=== PATIENT | female | born 1985 | race Caucasian/White ===

== ENCOUNTER 2016-04-13 11:42 | Emergency (ER) | payer OTHER ==
[2016-04-13 11:45] VITALS: TEMP 97.8
--- NOTE | 2016-04-13 12:06 | ED ---
Upper Extremity HPI - General Chief Complaint: Extremity Injury, Upper Stated Complaint: fall, arm pain Time Seen by Provider: 04/13/16 11:48 Source: patient Mode of arrival: ambulatory Limitations: no limitations - History of Present Illness Initial Comments: This 30-year-old female presents with a complaint of some left wrist and hand pain. She states that she fell down approximately 5-6 steps accidentally yesterday. She denies any other injuries. She has some pain with movement of her left wrist. No other complaints or modifying factors. Symptoms severity is minimal. Place: home - Related Data Home Medications Medication Instructions Recorded Confirmed Dextroamphetamine/Amphetamine 20 mg PO BID 10/13/13 04/09/15 [Adderall Xr] HYDROcodone/APAP 7.5-325MG [[place] 1 tab PO DIRECTED PRN 10/13/13 04/09/15 7.5-325] buPROPion XL [Wellbutrin XL] 150 mg PO DAILY 10/13/13 04/09/15 Previous Rx's Medication Instructions Recorded Hydrocodone/Acetaminophen [[place] 1 tab PO Q6HR PRN #20 tab 04/09/15 5-325] Allergies Allergy/AdvReac Type Severity Reaction Status Date / Time aspirin Allergy Unknown Verified 04/13/16 11:45 ciprofloxacin [From Cipro] Allergy Unknown Verified 04/13/16 11:45 ciprofloxacin HCl Allergy Unknown Verified 04/13/16 11:45 [From Cipro] haloperidol [From Haldol] Allergy Unknown Verified 04/13/16 11:45 haloperidol lactate Allergy Unknown Verified 04/13/16 11:45 [From Haldol] Iodinated Contrast Media - Allergy Dyspnea Verified 04/13/16 11:45 Oral and [Iodinated Contrast Media - IV Dye] latex Allergy Unknown Verified 04/13/16 11:45 Penicillins Allergy Unknown Verified 04/13/16 11:45 sulfamethoxazole Allergy Unknown Verified 04/13/16 11:45 [From Bactrim] trimethoprim [From Bactrim] Allergy Unknown Verified 04/13/16 11:45 Review of Systems ROS Statement: Those systems with pertinent positive or pertinent negative responses have been documented in the HPI. ROS Other: All systems not noted in ROS Statement are negative. Past Medical History Past Medical History: Asthma, Seizure Disorder Additional Past Medical History / Comment(s): migraines, back pain History of Any Multi-Drug Resistant Organisms: None Reported Past Surgical History: Section Past Psychological History: ADD/ADHD, Bipolar, Depression Smoking Status: Current every day smoker Past Alcohol Use History: None Reported, Rare Past Drug Use History: None Reported General Exam Limitations: no limitations Extremities exam: Present: tenderness (There is mild tenderness noted to the mid dorsal aspect of the left wrist. There is no swelling identified. There is some slight pain at extremes of range of motion. There is also some slight tenderness noted to the dorsal aspect of the mid left hand. No swelling is noted to this area as well. Strength is intact.) Neurological exam: Present: alert, oriented X3. Absent: motor sensory deficit Psychiatric exam: Present: normal affect, normal mood Skin exam: Present: intact. Absent: cyanosis, erythema Course Vital Signs 04/13/16 11:43 Temperature 97.8 F Pulse Rate 90 Respiratory 20 Rate Blood Pressure 119/73 O2 Sat by Pulse 99 Oximetry Medical Decision Making - Medical Decision Making The patient was seen and examined. All diagnostics were reviewed. An x-ray was taken of the left wrist and left hand. This does not show any evidence of fracture. The patient is placed in a 3 inch Ortho-Glass custom molded splint by myself. Excellent post-splint neurovascular status is noted. It is felt as though she is stable for discharge and leaves in no distress. Disposition Clinical Impression: Wrist sprain, Hand contusion Disposition: HOME SELF-CARE Instructions: Wrist Injury (ED), Hand Sprain (ED), Splint Care (ED) Additional Instructions: Please use Motrin and/or Tylenol if needed for pain. Referrals: Linda Burris MD [Primary Care Provider] - 1-2 days Time of Disposition: 12:54
--- NOTE | 2016-04-13 12:22 | XR ---
EXAMINATION TYPE: 3 views left hand. 4 views left wrist. DATE OF EXAM: 04/13/2016 12:15 PM COMPARISON: NONE HISTORY: 30-year-old female fall down steps last night with a pain along the palm. FINDINGS: Wrist: The radiocarpal and distal radial ulnar joint as well as the midcarpal compartment appear intact. No acute fracture, subluxation, or dislocation seen. Hand: No acute fracture, subluxation, or dislocation. IMPRESSION: Left wrist and hand without acute osseous abnormality seen.
[2016-04-13 13:11] VITALS: BP 107/66; PULSE 83; RESP 16
== END 2016-04-13 13:11 | disposition home or self-care (01) ==
LOC: EC 11:42
DX: S63.502A Unspecified sprain of left wrist, initial encounter (principal); S60.222A Contusion of left hand, initial encounter; W10.9XXA Fall (on) (from) unspecified stairs and steps, initial encounter; F90.9 Attention-deficit hyperactivity disorder, unspecified type; F31.9 Bipolar disorder, unspecified; F17.200 Nicotine dependence, unspecified, uncomplicated; Z79.899 Other long term (current) drug therapy; Z88.0 Allergy status to penicillin; Z88.1 Allergy status to other antibiotic agents; Z88.2 Allergy status to sulfonamides; Z91.040 Latex allergy status; Z88.6 Allergy status to analgesic agent; Z88.8 Allergy status to other drugs, medicaments and biological substances; Z91.041 Radiographic dye allergy status
CPT/HCPCS: 29125; 99283

== ENCOUNTER → 2016-06-19 | Outpatient (CLI) | payer OTHER | END | disposition home or self-care (01) | LOC: WWCWWP 12:21 | PROVIDERS: ATTEND Obstetrics & Gynecology | DX: Z53.9 Procedure and treatment not carried out, unspecified reason (principal) ==

== ENCOUNTER → 2016-11-27 | Outpatient (CLI) | payer OTHER ==
--- NOTE | 2016-11-27 14:07 | XR ---
Cervical spine HISTORY: Neck pain or graph 5 views of the cervical spine No comparisons There is no evident foraminal encroachment. Rudimentary cervical ribs noted at C7. There may be a spi nal curvature in the thoracic spine. Overlying artifact is present. Cervical vertebral bodies show pr eserved height, alignment, and bone mineralization. Prevertebral soft tissues. IMPRESSION: Nonspecific findings described above
== END | disposition home or self-care (01) ==
LOC: RADXRMAIN 10:52
PROVIDERS: ATTEND Physical Medicine & Rehabilitation
DX: M54.2 Cervicalgia (principal)
CPT/HCPCS: 72050

== ENCOUNTER 2017-07-25 09:22 | Emergency (ER) | payer OTHER ==
[2017-07-25 09:36] VITALS: BP 119/76; PULSE 97; RESP 16; TEMP 99.2
--- NOTE | 2017-07-25 10:22 | ED ---
ENT HPI - General Chief complaint: Dental/Oral Stated complaint: Abcess tooth Time Seen by Provider: 07/25/17 09:46 Source: patient, RN notes reviewed Mode of arrival: ambulatory Limitations: no limitations - History of Present Illness Initial comments: This a 31-year-old female presents emergency Department chief complaint of right lower dental pain. Patient states has been present for last couple weeks. Patient states that at this point [id number] medications are not helping. She has had facial swelling. She's attempted to call some tenderness with no success at this time. Patient reports no fever no chills no night sweats. Denies any trismus. - Related Data Home Medications Medication Instructions Recorded Confirmed Cranberry/Vitamin C 1 tab PO BID 07/25/17 07/25/17 Cyanocobalamin (Vitamin B-12) 1,000 mcg PO DAILY 07/25/17 07/25/17 [Vitamin B-12] Iron(Unknown Dose) 1 tab PO DAILY 07/25/17 07/25/17 Lurasidone HCl [Latuda] 20 mg PO HS 07/25/17 07/25/17 Topiramate [Topamax] 50 mg PO QAM 07/25/17 07/25/17 Topiramate [Topamax] 100 mg PO HS 07/25/17 07/25/17 Previous Rx's Medication Instructions Recorded Hydrocodone/Acetaminophen [[place] 1 tab PO Q6HR PRN #12 tab 07/25/17 5-325] Ibuprofen [Motrin] 600 mg PO Q8HR PRN #30 tab 07/25/17 Penicillin V Potassium [Pen Vee K] 500 mg PO QID #40 tablet 07/25/17 Allergies Allergy/AdvReac Type Severity Reaction Status Date / Time aspirin Allergy Unknown Verified 07/25/17 09:45 ciprofloxacin [From Cipro] Allergy Unknown Verified 07/25/17 09:45 ciprofloxacin HCl Allergy Unknown Verified 07/25/17 09:45 [From Cipro] divalproex sodium Allergy Anaphylaxis Verified 07/25/17 09:45 [From Depakote] haloperidol [From Haldol] Allergy Anaphylaxis Verified 07/25/17 09:45 haloperidol lactate Allergy Anaphylaxis Verified 07/25/17 09:45 [From Haldol] Iodinated Contrast- Oral and Allergy Dyspnea/chest Verified 07/25/17 09:45 IV Dye pain [Iodinated Contrast Media - IV Dye] Review of Systems ROS Statement: Those systems with pertinent positive or pertinent negative responses have been documented in the HPI. ROS Other: All systems not noted in ROS Statement are negative. Past Medical History Past Medical History: Asthma, Seizure Disorder Additional Past Medical History / Comment(s): migraines, back pain History of Any Multi-Drug Resistant Organisms: None Reported Past Surgical History: Section Past Psychological History: ADD/ADHD, Bipolar, Depression Smoking Status: Current every day smoker Past Alcohol Use History: Rare Past Drug Use History: None Reported General Exam Limitations: no limitations General appearance: alert, in no apparent distress Head exam: Present: atraumatic, normocephalic, normal inspection Eye exam: Present: normal appearance, PERRL, EOMI. Absent: scleral icterus, conjunctival injection, periorbital swelling ENT exam: Present: mucous membranes moist, TM's normal bilaterally, normal external ear exam. Absent: normal oropharynx (Edentulous, there is swelling to the right lower anterior lateral aspect no drainable abscess) Neck exam: Present: normal inspection, full ROM. Absent: tenderness, meningismus, lymphadenopathy Respiratory exam: Present: normal lung sounds bilaterally. Absent: respiratory distress, wheezes, rales, rhonchi, stridor Cardiovascular Exam: Present: regular rate, normal rhythm, normal heart sounds. Absent: systolic murmur, diastolic murmur, rubs, gallop, clicks Course Vital Signs 07/25/17 09:34 Temperature 99.2 F Pulse Rate 97 Respiratory 16 Rate Blood Pressure 119/76 O2 Sat by Pulse 99 Oximetry Medical Decision Making - Medical Decision Making 31-year-old female presents from for dental pain. Patient will be discharged any impact anti-inflammatories and pain medication. Patient will follow-up with on-call oral surgery. Return parameters were discussed. Disposition Clinical Impression: Dental caries, Dental abscess Disposition: HOME SELF-CARE Condition: Stable Instructions: Dental Abscess (ED) Additional Instructions: Please return to the Emergency Department if symptoms worsen or any other concerns. Prescriptions: Hydrocodone/Acetaminophen [[place] 5-325] 1 tab PO Q6HR PRN #12 tab PRN Reason: Pain Ibuprofen [Motrin] 600 mg PO Q8HR PRN #30 tab PRN Reason: Pain Penicillin V Potassium [Pen Vee K] 500 mg PO QID #40 tablet Is patient prescribed a controlled substance at d/c from ED?: Yes When asked, does pt state using other controlled substances?: No If prescribed controlled substance>3 days was MAPS reviewed?: Prescribed <3 Days If opioid is for acute pain is fill amount 7 days or less?: Yes If Rx opioid, was Start Talking consent form obtained?: Yes Referrals: Linda Burris MD [Primary Care Provider] - 1-2 days Henrry Beasley DDS [STAFF PHYSICIAN] - 1-2 days Time of Disposition: 10:21
== END 2017-07-25 10:33 | disposition home or self-care (01) ==
LOC: EC 09:22
DX: K04.7 Periapical abscess without sinus (principal); K02.9 Dental caries, unspecified; G40.909 Epilepsy, unspecified, not intractable, without status epilepticus; F31.9 Bipolar disorder, unspecified; F17.200 Nicotine dependence, unspecified, uncomplicated; Z79.899 Other long term (current) drug therapy; Z88.1 Allergy status to other antibiotic agents; Z88.6 Allergy status to analgesic agent; Z88.8 Allergy status to other drugs, medicaments and biological substances; Z91.041 Radiographic dye allergy status
CPT/HCPCS: 99282

== ENCOUNTER 2018-08-21 15:58 | Emergency (ER) | payer OTHER ==
[2018-08-21 16:04] VITALS: BP 126/89; PULSE 88; RESP 18; TEMP 98.8
[2018-08-21] MEDS ORDERED: CLINDAMYCIN 150 MG CAP PO STA (16:19)
[2018-08-21] MEDS ORDERED: ACET/COD 300 MG/30 MG STARTER PACK 6 TAB BTL PO STA (16:19)
--- NOTE | 2018-08-21 16:30 | ED ---
ENT HPI - General Chief complaint: ENT Stated complaint: Dental pain Time Seen by Provider: 08/21/18 16:10 Source: patient, RN notes reviewed, old records reviewed Mode of arrival: ambulatory Limitations: no limitations - History of Present Illness Initial comments: Patient is a 32-year-old female who presents emergency Department today with complaints of lower dental pain. Patient had multiple lower teeth removed for denture fitting on August 18. Patient states that she has had increased pain and swelling over her lower jaw for the past day. She states that she saw her dental clinic yesterday for denture refitting. She called him today complaining of increased pain and he sent her here for further evaluation and concern for possible infection. Patient states that she has had no fevers, but does report chills. She denies any trismus. She denies any sore throat, or significant abscesses. She complains of tenderness over the lower jawline. Patient denies any recent fever, chills, shortness of breath, chest pain, back pain, abdominal pain, nausea vomiting, numbness or tingling, dysuria or hematuria, constipation or diarrhea, headaches or visual changes, or any other current symptoms - Related Data Home Medications Medication Instructions Recorded Confirmed Cranberry/Vitamin C 1 tab PO BID 07/25/17 07/25/17 Cyanocobalamin (Vitamin B-12) 1,000 mcg PO DAILY 07/25/17 07/25/17 [Vitamin B-12] Iron(Unknown Dose) 1 tab PO DAILY 07/25/17 07/25/17 Lurasidone [Latuda] 20 mg PO HS 07/25/17 07/25/17 Topiramate [Topamax] 50 mg PO QAM 07/25/17 07/25/17 Topiramate [Topamax] 100 mg PO HS 07/25/17 07/25/17 Previous Rx's Medication Instructions Recorded Hydrocodone/Acetaminophen [[place] 1 tab PO Q6HR PRN #12 tab 07/25/17 5-325] Ibuprofen [Motrin] 600 mg PO Q8HR PRN #30 tab 07/25/17 Penicillin V Potassium [Pen Vee K] 500 mg PO QID #40 tablet 07/25/17 Clindamycin [Cleocin] 450 mg PO TID 7 Days capsule 08/21/18 Allergies Allergy/AdvReac Type Severity Reaction Status Date / Time aspirin Allergy Unknown Verified 07/25/17 09:45 ciprofloxacin [From Cipro] Allergy Unknown Verified 07/25/17 09:45 ciprofloxacin HCl Allergy Unknown Verified 07/25/17 09:45 [From Cipro] divalproex sodium Allergy Anaphylaxis Verified 07/25/17 09:45 [From Depakote] haloperidol [From Haldol] Allergy Anaphylaxis Verified 07/25/17 09:45 haloperidol lactate Allergy Anaphylaxis Verified 07/25/17 09:45 [From Haldol] Iodinated Contrast- Oral and Allergy Dyspnea/chest Verified 07/25/17 09:45 IV Dye pain [Iodinated Contrast Media - IV Dye] Review of Systems ROS Statement: Those systems with pertinent positive or pertinent negative responses have been documented in the HPI. ROS Other: All systems not noted in ROS Statement are negative. Past Medical History Past Medical History: Asthma, Seizure Disorder Additional Past Medical History / Comment(s): migraines, back pain History of Any Multi-Drug Resistant Organisms: None Reported Past Surgical History: Section Additional Past Surgical History / Comment(s): oral surgery Past Psychological History: ADD/ADHD, Bipolar, Depression Smoking Status: Current every day smoker Past Alcohol Use History: Occasional Past Drug Use History: Marijuana General Exam - General Exam Comments Initial Comments: This is a pleasant 32-year-old female. Alert and oriented 3. No significant distress. Limitations: no limitations General appearance: alert, in no apparent distress Head exam: Present: atraumatic, normocephalic, normal inspection Eye exam: Present: normal appearance, PERRL, EOMI. Absent: scleral icterus, conjunctival injection, periorbital swelling ENT exam: Present: normal exam, mucous membranes moist, other (Patient is lower jaw tenderness. Dentures are removed and evidence of swelling around lower gumline. Sutures are intact. No bleeding noted.) Neck exam: Present: normal inspection. Absent: tenderness, meningismus, lymphadenopathy Respiratory exam: Present: normal lung sounds bilaterally. Absent: respiratory distress, wheezes, rales, rhonchi, stridor Cardiovascular Exam: Present: regular rate, normal rhythm, normal heart sounds. Absent: systolic murmur, diastolic murmur, rubs, gallop, clicks GI/Abdominal exam: Present: soft, normal bowel sounds. Absent: distended, tenderness, guarding, rebound, rigid Extremities exam: Present: normal inspection, full ROM, normal capillary refill. Absent: tenderness, pedal edema, joint swelling, calf tenderness Back exam: Present: normal inspection Neurological exam: Present: alert, oriented X3, CN II-XII intact Psychiatric exam: Present: normal affect, normal mood Skin exam: Present: warm, dry, intact, normal color. Absent: rash Course Vital Signs 08/21/18 16:01 Temperature 98.8 F Pulse Rate 88 Respiratory 18 Rate Blood Pressure 126/89 O2 Sat by Pulse 99 Oximetry Medical Decision Making - Medical Decision Making Patient is a 32-year-old female [employer] today 3 days after multiple tooth extractions of her lower jaw. Denture placement. She presents with swelling over the lower gums and tenderness over the lower jaw line. There is no palpable abscess of the sign but there does appear to be induration and swelling over the gumlines. Patient has been given clindamycin, starter pack Tylenol 3. Discussed doing saltwater rinses and following up with her dental clinic. Patient will be discharged with a prescription for clindamycin. Disposition Clinical Impression: Gum abscess Disposition: HOME SELF-CARE Condition: Good Instructions (If sedation given, give patient instructions): Dental Abscess (ED) Additional Instructions: Patient advised of close follow-up with primary care doctor and dentist. She frequently strain and salt water rinses of the gums. Patient should avoid wearing dentures at this time. Return to emergency department if any alarming signs or symptoms occur. Prescriptions: Clindamycin [Cleocin] 450 mg PO TID 7 Days capsule Is patient prescribed a controlled substance at d/c from ED?: No Referrals: Linda Burris MD [Primary Care Provider] - 1-2 days Time of Disposition: 16:28
== END 2018-08-21 16:36 | disposition home or self-care (01) ==
LOC: EC 15:58
DX: K05.219 Aggressive periodontitis, localized, unspecified severity (principal); G40.909 Epilepsy, unspecified, not intractable, without status epilepticus; F31.9 Bipolar disorder, unspecified; F17.200 Nicotine dependence, unspecified, uncomplicated; Z88.1 Allergy status to other antibiotic agents; Z88.6 Allergy status to analgesic agent; Z88.8 Allergy status to other drugs, medicaments and biological substances; Z91.041 Radiographic dye allergy status; Z79.899 Other long term (current) drug therapy; Z97.2 Presence of dental prosthetic device (complete) (partial); Z98.890 Other specified postprocedural states
CPT/HCPCS: 99283

== ENCOUNTER 2019-09-27 11:33 | Emergency (ER) | payer OTHER ==
[2019-09-27 11:56] VITALS: BP 113/79; PULSE 69; RESP 16; TEMP 98
[2019-09-27] MEDS ORDERED: IBUPROFEN 600 MG TAB PO STA (12:25)
--- NOTE | 2019-09-27 12:27 | ED ---
Fall HPI - General Chief Complaint: Fall Stated Complaint: Fall Time Seen by Provider: 09/27/19 12:05 Source: patient, RN notes reviewed Mode of arrival: ambulatory Limitations: no limitations - History of Present Illness Initial Comments: This a 34-year-old female presents emergency Department chief complaint of fall. Patient states she is going up her steps states that her shoe caught step causing her fall. She states that she fell onto her left wrist and hand region. Patient states that this happen yesterday she has been icing that states pain is still persistent. She is right-hand dominant no head injury no loss conscious. - Related Data Home Medications Medication Instructions Recorded Confirmed Cranberry/Vitamin C 1 tab PO BID 07/25/17 07/25/17 Cyanocobalamin (Vitamin B-12) 1,000 mcg PO DAILY 07/25/17 07/25/17 [Vitamin B-12] Iron(Unknown Dose) 1 tab PO DAILY 07/25/17 07/25/17 Lurasidone [Latuda] 20 mg PO HS 07/25/17 07/25/17 Topiramate [Topamax] 50 mg PO QAM 07/25/17 07/25/17 Topiramate [Topamax] 100 mg PO HS 07/25/17 07/25/17 Previous Rx's Medication Instructions Recorded Hydrocodone/Acetaminophen [[place] 1 tab PO Q6HR PRN #12 tab 07/25/17 5-325] Ibuprofen [Motrin] 600 mg PO Q8HR PRN #30 tab 07/25/17 Penicillin V Potassium [Pen Vee K] 500 mg PO QID #40 tablet 07/25/17 Clindamycin [Cleocin] 450 mg PO TID 7 Days capsule 08/21/18 Ibuprofen [Motrin] 600 mg PO Q8HR PRN #20 tab 09/27/19 Allergies Allergy/AdvReac Type Severity Reaction Status Date / Time aspirin Allergy Unknown Verified 09/27/19 11:52 ciprofloxacin [From Cipro] Allergy Unknown Verified 09/27/19 11:52 ciprofloxacin HCl Allergy Unknown Verified 09/27/19 11:52 [From Cipro] divalproex sodium Allergy Anaphylaxis Verified 09/27/19 11:52 [From Depakote] haloperidol [From Haldol] Allergy Anaphylaxis Verified 09/27/19 11:52 haloperidol lactate Allergy Anaphylaxis Verified 09/27/19 11:52 [From Haldol] Iodinated Contrast Media Allergy Dyspnea/chest Verified 09/27/19 11:52 [Iodinated Contrast Media - pain IV Dye] Review of Systems ROS Statement: Those systems with pertinent positive or pertinent negative responses have been documented in the HPI. ROS Other: All systems not noted in ROS Statement are negative. Past Medical History Past Medical History: Asthma, Seizure Disorder Additional Past Medical History / Comment(s): migraines, back pain History of Any Multi-Drug Resistant Organisms: None Reported Past Surgical History: Section Additional Past Surgical History / Comment(s): oral surgery Past Psychological History: ADD/ADHD, Bipolar, Depression Smoking Status: Current every day smoker Past Alcohol Use History: Daily Past Drug Use History: Marijuana General Exam Limitations: no limitations General appearance: alert, in no apparent distress Head exam: Present: atraumatic, normocephalic, normal inspection Neck exam: Present: normal inspection, full ROM. Absent: tenderness Respiratory exam: Present: normal lung sounds bilaterally. Absent: respiratory distress, wheezes, rales, rhonchi, stridor Cardiovascular Exam: Present: regular rate, normal rhythm, normal heart sounds. Absent: systolic murmur, diastolic murmur, rubs, gallop, clicks GI/Abdominal exam: Present: soft, normal bowel sounds. Absent: distended, tenderness, guarding, rebound, rigid Extremities exam: Present: other (There are multiple old scars noted on bilateral arms, (tenderness palpation the distal radius and ulnar aspect patient has pain with range of motion neurovascular intact there is no proximal forearm tenderness no digit tenderness.) Neurological exam: Present: alert, oriented X3 Skin exam: Present: warm, dry, intact, normal color. Absent: rash Course Vital Signs 09/27/19 11:53 Temperature 98 F Pulse Rate 69 Respiratory 16 Rate Blood Pressure 113/79 O2 Sat by Pulse 100 Oximetry Medical Decision Making - Medical Decision Making 34-year-old presented for left wrist pain x-rays were reviewed no acute fracture. Patient is left-hand contusion, sprain patient will continue conservative treatment return parameters discussed. Disposition Clinical Impression: Fall, Left wrist sprain Disposition: HOME SELF-CARE Condition: Stable Instructions (If sedation given, give patient instructions): Wrist Injury (ED) Additional Instructions: Please return to the Emergency Department if symptoms worsen or any other concerns. Prescriptions: Ibuprofen [Motrin] 600 mg PO Q8HR PRN #20 tab PRN Reason: Pain Is patient prescribed a controlled substance at d/c from ED?: No Referrals: Linda Burris MD [Primary Care Provider] - 1-2 days Time of Disposition: 12:59
[2019-09-27] MEDS ORDERED: ACET/COD 300 MG/30 MG STARTER PACK 6 TAB BTL PO STA (12:59)
--- NOTE | 2019-09-27 13:17 | XR ---
EXAMINATION TYPE: XR wrist complete LT DATE OF EXAM: 09/27/2019 CLINICAL HISTORY: Left wrist pain after fall TECHNIQUE: 4 views of the left wrist are obtained. COMPARISON: Left wrist radiograph 04/13/2016 FINDINGS: There is no acute fracture/dislocation evident in the left wrist. The joint spaces in the left wrist appear within normal limits. The overlying soft tissue appears unremarkable. IMPRESSION: There is no acute fracture or dislocation in the left wrist.
== END 2019-09-27 13:08 | disposition home or self-care (01) ==
LOC: EC 11:33
DX: S63.502A Unspecified sprain of left wrist, initial encounter (principal); F17.200 Nicotine dependence, unspecified, uncomplicated; G40.909 Epilepsy, unspecified, not intractable, without status epilepticus; F31.9 Bipolar disorder, unspecified; G43.909 Migraine, unspecified, not intractable, without status migrainosus; Z79.899 Other long term (current) drug therapy; Z88.6 Allergy status to analgesic agent; Z88.1 Allergy status to other antibiotic agents; Z88.8 Allergy status to other drugs, medicaments and biological substances; Z91.041 Radiographic dye allergy status; W10.9XXA Fall (on) (from) unspecified stairs and steps, initial encounter; Y93.01 Activity, walking, marching and hiking; Y92.009 Unspecified place in unspecified non-institutional (private) residence as the place of occurrence of the external cause
CPT/HCPCS: 99283

== ENCOUNTER 2021-07-18 08:20 | Emergency (ER) | payer OTHER ==
[2021-07-18 08:31] VITALS: BP 107/76; PULSE 89; RESP 20; TEMP 98
--- NOTE | 2021-07-18 09:27 | ED ---
General Adult HPI - General Chief complaint: Recheck/Abnormal Lab/Rx Stated complaint: hemorrhoid Time Seen by Provider: 07/18/21 08:49 Source: patient, RN notes reviewed, old records reviewed Mode of arrival: ambulatory Limitations: no limitations - History of Present Illness Initial comments: Patient is a 35-year-old female presenting to emergency Department with complaints of a hemorrhoid at worsening over the past few days. She states she's been having an issue with a hemorrhoid over the past couple months, this past week she has been constipated and feels like it is making a hemorrhoid worse. She did take a laxative 2 days ago was finally able to have a bowel movement. She states she's been having increasing pain, she did talk to her doc tor about it who agreed to remove the hemorrhoid however patient did not want her PCP to do this. Patient denies any bleeding. She denies any fevers or chills. She has no further complaints. - Related Data Home Medications Medication Instructions Recorded Confirmed Cranberry/Vitamin C 1 tab PO BID 07/25/17 07/25/17 Cyanocobalamin (Vitamin B-12) 1,000 mcg PO DAILY 07/25/17 07/25/17 [Vitamin B-12] Iron(Unknown Dose) 1 tab PO DAILY 07/25/17 07/25/17 Lurasidone [Latuda] 20 mg PO HS 07/25/17 07/25/17 Topiramate [Topamax] 50 mg PO QAM 07/25/17 07/25/17 Topiramate [Topamax] 100 mg PO HS 07/25/17 07/25/17 Previous Rx's Medication Instructions Recorded Hydrocodone/Acetaminophen [Holcomb 1 tab PO Q6HR PRN #12 tab 07/25/17 5-325] Ibuprofen [Motrin] 600 mg PO Q8HR PRN #30 tab 07/25/17 Penicillin V Potassium [Pen Vee K] 500 mg PO QID #40 tablet 07/25/17 Clindamycin [Cleocin] 450 mg PO TID 7 Days capsule 08/21/18 Ibuprofen [Motrin] 600 mg PO Q8HR PRN #20 tab 09/27/19 Hydrocortisone Pr Cream 1 applic RECTAL BID #28 gm 07/18/21 [Proctosol-Hc 2.5%] Polyethylene Glycol 3350 [Miralax] 17 gm PO DAILY #527 gm 07/18/21 Allergies Allergy/AdvReac Type Severity Reaction Status Date / Time aspirin Allergy Unknown Verified 07/18/21 08:31 ciprofloxacin [From Cipro] Allergy Unknown Verified 07/18/21 08:31 ciprofloxacin HCl Allergy Unknown Verified 07/18/21 08:31 [From Cipro] divalproex sodium Allergy Anaphylaxis Verified 07/18/21 08:31 [From Depakote] haloperidol [From Haldol] Allergy Anaphylaxis Verified 07/18/21 08:31 haloperidol lactate Allergy Anaphylaxis Verified 07/18/21 08:31 [From Haldol] Iodinated Contrast Media Allergy Dyspnea/chest Verified 07/18/21 08:31 [Iodinated Contrast Media - pain IV Dye] Review of Systems ROS Statement: Those systems with pertinent positive or pertinent negative responses have been documented in the HPI. ROS Other: All systems not noted in ROS Statement are negative. Past Medical History Past Medical History: Asthma, Seizure Disorder Additional Past Medical History / Comment(s): migraines, back pain History of Any Multi-Drug Resistant Organisms: None Reported Past Surgical History: Section Additional Past Surgical History / Comment(s): oral surgery Past Psychological History: ADD/ADHD, Bipolar, Depression Smoking Status: Current every day smoker Past Alcohol Use History: Daily Past Drug Use History: Marijuana General Exam - General Exam Comments Initial Comments: GENERAL: Patient is well-developed and well-nourished. Patient is nontoxic and in no acute distress. HEAD: Atraumatic, normocephalic. EYES: Pupils equal round and reactive to light, extraocular movements intact, sclera anicteric, conjunctiva are normal. Eyelids were unremarkable. ENT: Moist mucous membranes. LUNGS: Unlabored respirations. Breath sounds clear to auscultation bilaterally and equal. No wheezes rales or rhonchi. HEART: Regular rate and rhythm without murmurs, rubs or gallops. ABDOMEN: Soft, nontender, normoactive bowel sounds. Rectal: One moderate sized external hemorrhoid, this is not thrombosed, no active bleeding. MUSCULOSKELETAL: Normal extremities with adequate strength and normal range of motion, no pitting or edema. No clubbing or cyanosis. NEUROLOGICAL: Patient is alert and oriented x 3. Normal speech, normal gait. PSYCH: Normal mood, normal affect. SKIN: Warm, Dry, normal turgor, no rashes or lesions noted. Limitations: no limitations Course Vital Signs 07/18/21 08:28 Temperature 98 F Pulse Rate 89 Respiratory 20 Rate Blood Pressure 107/76 O2 Sat by Pulse 98 Oximetry Medical Decision Making - Medical Decision Making Patient is a 35-year-old female here with complaints of a hemorrhoid. No active bleeding, one single hemorrhoid on exam. We discussed warm baths, I will prescribe steroid cream. Recommend tux pads as well. I will give her referral to GI. Patient is agreeable to this plan, AND her answer. Patient stable for discharge. Disposition Clinical Impression: Hemorrhoid Disposition: HOME SELF-CARE Condition: Stable Instructions (If sedation given, give patient instructions): Hemorrhoids (ED) Additional Instructions: Please return to the Emergency Department if symptoms worsen or any other concerns. Recommend warm baths, Tucks pads, steroid cream as discussed. Also recommend taking MiraLAX for a stool softener. Follow-up with GI if symptoms do not improve. Prescriptions: Polyethylene Glycol 3350 [Miralax] 17 gm PO DAILY #527 gm Hydrocortisone Pr Cream [Proctosol-Hc 2.5%] 1 applic RECTAL BID #28 gm Is patient prescribed a controlled substance at d/c from ED?: No Referrals: Roberth Bennett MD [Primary Care Provider] - 1-2 days Time of Disposition: 09:26
== END 2021-07-18 09:33 | disposition home or self-care (01) ==
LOC: EC 08:20
DX: K64.9 Unspecified hemorrhoids (principal); J45.909 Unspecified asthma, uncomplicated; G40.909 Epilepsy, unspecified, not intractable, without status epilepticus; F90.9 Attention-deficit hyperactivity disorder, unspecified type; F31.9 Bipolar disorder, unspecified; F17.200 Nicotine dependence, unspecified, uncomplicated; Z72.89 Other problems related to lifestyle; Z88.6 Allergy status to analgesic agent; Z88.1 Allergy status to other antibiotic agents; Z91.041 Radiographic dye allergy status; Z88.8 Allergy status to other drugs, medicaments and biological substances
CPT/HCPCS: 99282

== ENCOUNTER → 2022-07-03 | Outpatient (CLI) | payer OTHER ==
--- NOTE | 2022-07-03 11:07 | XR ---
EXAMINATION TYPE: XR cervical spine comp DATE OF EXAM: 07/03/2022 COMPARISON: 11/27/2016 HISTORY: Pain TECHNIQUE: Four views are submitted. FINDINGS: The odontoid is intact. There are no compression deformities. The prevertebral soft tissue structur es are within normal limits. Loss of the normal cervical lordosis IMPRESSION: 1. No acute process. If symptoms persist consider MRI.
--- NOTE | 2022-07-03 11:15 | XR ---
EXAMINATION TYPE: XR thoracic spine complete DATE OF EXAM: 07/03/2022 COMPARISON: NONE HISTORY: Pain TECHNIQUE: 3 views submitted FINDINGS: Alignment is anatomic. There is no compression deformities. Multilevel moderate to severe degenerati ve disc disease. Slight curvature of the spine. Pedicles appear intact. IMPRESSION: 1. Multilevel moderate to disc disease.
== END | disposition home or self-care (01) ==
LOC: RADXRMAIN 09:47
PROVIDERS: ATTEND Physical Medicine & Rehabilitation
DX: M51.34 Other intervertebral disc degeneration, thoracic region (principal); M54.2 Cervicalgia
CPT/HCPCS: 72050; 72072